=== PATIENT | male | born 1980 | race Caucasian/White ===

== ENCOUNTER 2020-05-04 21:30 | Emergency (ER) | payer BC, OTHER ==
--- NOTE | 2020-05-04 21:46 | EDM.PDOC ---
ED HPI GENERAL MEDICAL PROBLEM - General Chief Complaint: General Stated Complaint: intermittent chest pain Time Seen by Provider: 05/04/20 21:44 Source of Information: Reports: Patient History Limitations: Reports: No Limitations - History of Present Illness INITIAL COMMENTS - FREE TEXT/NARRATIVE: Arnoldo Osuna, 39-year-old male, presents to the emergency department with int ermittent chest discomfort over the past 24+ hours. States this is vague in nature denying any shortness of breath, pain generalized anteriorly with some back pain which is known to be chronic. States he has had generalized body aches at times denying any fever or chills. Has had occasional headache but it is noted he is hypertensive on initial vitals being obtained. History of anxiety plays a part into this along with his elevated blood pressure which is not typical for him. Noted recent change in medications and compliant with current prescription.Was prescribed Fluoxetine, to which he states known allergy to. Has not taken Buspar as Fluoxetine was taken once prescribed yesterday evening. Onset: Gradual Duration: Day(s): Location: Reports: Chest Quality: Reports: Pressure Severity: Moderate Improves with: Reports: None Worsens with: Reports: Movement Left Middle Chest Pain Score (Numeric/FACES): 6 - Related Data Allergies Allergy/AdvReac Type Severity Reaction Status Date / Time acetaminophen [From Tylenol] Allergy Nausea and Verified 05/04/20 22:05 Vomiting ciprofloxacin Allergy Edema Verified 05/04/20 22:05 fluoxetine [From Prozac] AdvReac Other Verified 05/04/20 22:05 Past Medical History HEENT History: Reports: Impaired Vision Other HEENT History: wears glasses. 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 Neurological History: Reports: None Psychiatric History: Reports: ADD, ADHD, Addiction, Anxiety, Bipolar, Depression Endocrine/Metabolic History: Reports: Obesity/BMI 30+ Hematologic History: Reports: None Immunologic History: Reports: None Oncologic (Cancer) History: Reports: None Dermatologic History: Reports: None - Infectious Disease History Infectious Disease History: Reports: Chicken Pox - Past Surgical History Head Surgeries/Procedures: Reports: None HEENT Surgical History: Reports: Adenoidectomy, Oral Surgery, Tonsillectomy Cardiovascular Surgical History: Reports: None GI Surgical History: Reports: Colonoscopy Endocrine Surgical History: Reports: None Neurological Surgical History: Reports: None Musculoskeletal Surgical History: Reports: Other (See Below) (Left ankle surgery for talar repair) Oncologic Surgical History: Reports: None Dermatological Surgical History: Reports: None - Past Imaging History Past Imaging History: Reports: CAT Scan, MRI, Xray Social & Family History - Family History HEENT: Reports: None Cardiac: Reports: Bypass, CAD Respiratory: Reports: Sleep Apnea GI: Reports: None OBGYN: Reports: None Musculoskeletal: Reports: None Neurological: Reports: None Psychiatric: Reports: None Endocrine/Metabolic: Reports: None Hematologic: Reports: None Immunologic: Reports: None Dermatologic: Reports: None Oncologic: Reports: Pancreatic - Tobacco Use Tobacco Use Status *Q: Current Every Day Tobacco User Tobacco Use Within Last Twelve Months: Cigarettes Used Tobacco, but Quit: No Smoking Cessation Information Provided To Patient: Patient Refused - Caffeine Use Caffeine Use: Reports: Coffee, Soda - Living Situation & Occupation Living situation: Reports: , with Family Occupation: Disabled ED ROS GENERAL - Review of Systems Review Of Systems: See Below Constitutional: Reports: No Symptoms. Denies: Fever, Chills HEENT: Reports: No Symptoms Respiratory: Reports: No Symptoms Cardiovascular: Reports: Chest Pain, Blood Pressure Problem Endocrine: Reports: No Symptoms GI/Abdominal: Reports: No Symptoms : Reports: No Symptoms Musculoskeletal: Reports: Neck Pain, Back Pain, Leg Pain Skin: Reports: No Symptoms Neurological: Reports: No Symptoms Psychiatric: Reports: Anxiety Hematologic/Lymphatic: Reports: No Symptoms Immunologic: Reports: No Symptoms ED EXAM, GENERAL - Physical Exam Exam: See Below General Appearance: Alert, WD/WN, No Apparent Distress Ears: Normal External Exam, Normal Canal, Hearing Grossly Normal Nose: Normal Inspection, Normal Mucosa, No Blood Throat/Mouth: Normal Inspection, Normal Lips, Normal Teeth, Normal Gums, Normal Oropharynx, Normal Voice, No Airway Compromise, Other (odor of smoking product) Head: Atraumatic, Normocephalic Neck: Normal Inspection, Supple, Non-Tender, Full Range of Motion Respiratory/Chest: No Respiratory Distress, Lungs Clear, Normal Breath Sounds, No Accessory Muscle Use, Chest Non-Tender Cardiovascular: Normal Peripheral Pulses, Regular Rate, Rhythm, No Edema, No Gallop, No JVD, No Murmur, No Rub GI/Abdominal: Normal Bowel Sounds, Soft, Non-Tender, No Organomegaly, No Distention, No Abnormal Bruit, No Mass (Male) Exam: Deferred Rectal (Males) Exam: Deferred Back Exam: Normal Inspection, Full Range of Motion, Paraspinal Tenderness, Vertebral Tenderness Extremities: Normal Inspection, Normal Capillary Refill, Other (scar to left ankle with limited ROM) Neurological: Alert, Oriented, CN II-XII Intact, Normal Cognition, Normal Gait, Normal Reflexes, No Motor/Sensory Deficits Psychiatric: Anxious Skin Exam: Warm, Dry, Intact, Normal Color, No Rash Lymphatic: No Adenopathy #1 Interpretation EKG Date: 05/04/20 Time: 21:49 Rhythm: NSR [place]: Normal P-Wave: Present QRS: Normal ST-T: Normal QT: Normal Comparison: Change From Previous EKG (NO PVC on current EKG, prior 27 Feb 2017) Course - Vital Signs Last Recorded V/S: Last Vital Signs Temp 98.6 F 05/04/20 21:42 Pulse 72 05/04/20 23:15 Resp 21 H 05/04/20 23:15 BP 140/98 H 05/04/20 23:15 Pulse Ox 93 L 05/04/20 23:00 - Orders/Labs/Meds Orders: Active Orders 24 hr Category Date Time Status EKG Documentation Completion [RC] ASDIRECTED Care 05/04/20 21:45 Active Peripheral IV Care [RC] . DIRECTED Care 05/04/20 21:54 Active Chest 2V [CR] Stat Exams 05/04/20 22:26 Ordered Sodium Chloride 0.9% [Saline Flush] Med 05/04/20 21:54 Active 10 ml FLUSH Q8HR PRN Peripheral IV Insertion Adult [OM.PC] Routine Oth 05/04/20 21:54 Ordered EKG 12 Lead [EK] Urgent Ther 05/04/20 21:45 Ordered Medication Orders Sodium Chloride (Saline Flush) 10 ml FLUSH Q8HR PRN PRN Reason: keep vein open Last Admin: 05/04/20 23:08 Dose: 10 ml Documented by: FLORIAN Labs: Laboratory Tests 05/04/20 05/04/20 05/04/20 Range/Units 22:03 22:03 22:03 WBC 10.30 H (5.00-10.00) 10^3/uL RBC 5.30 (4.50-6.00) 10^6/uL Hgb 16.8 (13.0-17.0) g/dL Hct 48.7 (40.0-52.0) % MCV 91.9 (82.0-92.0) fL MCH 31.7 H (27.0-31.0) pg MCHC 34.5 (32.0-36.0) g/dL RDW 12.8 (11.5-14.5) % Plt Count 158 (150-400) 10^3/uL MPV 11.6 H (7.4-10.4) fL Immature Gran % (Auto) 0.2 (0.0-5.0) % Neut % (Auto) 59.4 (50.0-70.0) % Lymph % (Auto) 34.2 (20.0-40.0) % [place] % (Auto) 5.1 (2.0-8.0) % Eos % (Auto) 0.8 L (1.0-3.0) % Baso % (Auto) 0.3 (0.0-1.0) % Neut # (Auto) 6.12 (2.50-7.00) 10^3/uL Lymph # (Auto) 3.52 (1.00-4.00) 10^3/uL [place] # (Auto) 0.53 (0.10-0.80) 10^3/uL Eos # (Auto) 0.08 L (0.10-0.30) 10^3/uL Baso # (Auto) 0.03 (0.00-0.10) 10^3/uL Immature Gran # (Auto) 0.02 (0.00-0.50) 10^3/uL D-Dimer, Quantitative < 100 (<400) ng/mL Sodium 141 (136-145) mmol/L Potassium 3.3 L (3.5-5.1) mmol/L Chloride 103 (98-107) mmol/L Carbon Dioxide 25.8 (21.0-32.0) mmol/L Anion Gap 15.5 H (5-15) mmol/L BUN 10 (7-18) mg/dL Creatinine 0.86 (0.51-1.17) mg/dL Est Cr Clr Drug Dosing 120.39 mL/min Estimated GFR (MDRD) > 60 mL/min Glucose 98 (70-140) mg/dL Calcium 8.9 (8.7-10.3) mg/dL Total Bilirubin 0.8 (0.2-1.0) mg/dL AST 17 (15-37) U/L ALT 30 (14-63) U/L Alkaline Phosphatase 79 (46-116) U/L Creatine Kinase 131 (26-276) U/L CK-MB (CK-2) < 0.50 (0.00-3.60) ng/mL Troponin I < 0.017 (0.000-0.056) ng/mL Total Protein 7.3 (6.4-8.2) g/dL Albumin 4.18 (3.40-5.00) g/dL Meds: Medications Generic Name Dose Route Start Last Admin Trade Name Frewill PRN Reason Stop Dose Admin Sodium Chloride 10 ml 05/04/20 21:54 05/04/20 23:08 Saline Flush FLUSH 10 ml Q8HR PRN Administration keep vein open Discontinued Medications Generic Name Dose Route Start Last Admin Trade Name Freq PRN Reason Stop Dose Admin Ketorolac Tromethamine 30 mg 05/04/20 23:04 05/04/20 23:08 Toradol IVPUSH 05/04/20 23:05 30 mg ONETIME ONE Administration Lorazepam 0.5 mg 05/04/20 22:51 05/04/20 22:55 Ativan PO 05/04/20 22:52 0.5 mg ONETIME ONE Administration - Re-Assessments/Exams Free Text/Narrative Re-Assessment/Exam: 05/04/20 23:44 Significant improvement of blood pressure as well as his back pain headache. Noted improvement of blood pressure as well. We did discuss in detail the combination of medications that the phentermine may not be fully beneficial as sometimes he had been on it for minimal weight loss being noted. Phentermine may be contributing to his fluctuating blood pressure readings. Free Text/Narrative Re-Assessment/Exam: 05/04/20 23:52 Discussed with team adding potassium containing foods banana and such into his diet daily as his potassium on the low side of normal. He agrees and will follow up with his clinic in the next week. Departure - Departure Time of Disposition: 23:12 Disposition: Home, Self-Care 01 Condition: Good Clinical Impression: Anxiety Headache Qualifiers: Headache chronicity pattern: acute headache Intractability: not intractable Back pain Qualifiers: Back pain location: thoracic back pain Chronicity: chronic Back pain laterality: left Qualified Code(s): M54.6 - Pain in thoracic spine - Discharge Information *PRESCRIPTION DRUG MONITORING PROGRAM REVIEWED*: Not Applicable *COPY OF PRESCRIPTION DRUG MONITORING REPORT IN PATIENT JUNAID: Not Applicable Instructions: Pain Without a Known Cause, Chronic Back Pain Referrals: Maggie Hester PA-C [Primary Care Provider] - Forms: ED Department Discharge Additional Instructions: You need to go home and rest. Your EKG, chest x-ray, and lab tests are all negative for any factors in conjunction with your heart. This intermittent discomfort you are having may be related to your chronic back pain. You may take ibuprofen or your prescribed anti-inflammatory diclofenac that you have been given in the past for associated aches and pains. Take your prescription medicines as directed, but do not take the fluoxetine/Prozac. You need to contact the clinic on Thursday to discuss options for your anxiety treatment as you are allergic to the duloxetine and fluoxetine in review of records. Limit your caffeine intake and other stimulant that may be exacerbating your blood pressure readings. Contact the clinic in regards to your blood pressure as well as it is trended in your past visits on the high normal side. We saw significant improvement here after we gave you the ketorolac for your headache and back pain as well as the dose of Ativan for anxiety and blood pressure related to your pain. Sepsis Event Note (ED) - Focused Exam Vital Signs: Vital Signs Temp Pulse Resp BP Pulse Ox 05/04/20 23:15 72 21 H 140/98 H 05/04/20 23:00 77 25 H 129/92 H 93 L 05/04/20 22:45 81 22 H 133/92 H 94 L 05/04/20 22:30 80 22 H 130/88 92 L 05/04/20 22:15 80 26 H 137/90 94 L 05/04/20 22:00 84 19 139/94 H 95 05/04/20 21:45 86 26 H 143/102 H 97 05/04/20 21:42 98.6 F 84 25 H 137/97 H 96 - Problem List & Annotations (1) Chest pain SNOMED Code(s): 00243799 Code(s): R07.9 - CHEST PAIN, UNSPECIFIED Status: Acute Priority: High Qualifiers: Chest pain type: other chest pain Qualified Code(s): R07.89 - Other chest pain; R07.8 - Other chest pain (2) Headache SNOMED Code(s): 12733702 Code(s): R51.9 - HEADACHE, UNSPECIFIED Status: Acute Priority: Medium Qualifiers: Headache chronicity pattern: acute headache Intractability: not intractable (3) Tobacco abuse SNOMED Code(s): 528047999 Code(s): Z72.0 - TOBACCO USE Status: Chronic Priority: Medium Annotation/Comment:: denies desire to quit (4) Anxiety SNOMED Code(s): 70284914 Code(s): F41.9 - ANXIETY DISORDER, UNSPECIFIED Status: Acute (5) Elevated blood pressure Code(s): I10 - ESSENTIAL (PRIMARY) HYPERTENSION Status: Chronic Priority: Medium Onset Date: 10/11/15 (6) Back pain SNOMED Code(s): 209262280 Code(s): M54.9 - DORSALGIA, UNSPECIFIED Status: Chronic Priority: Medium Qualifiers: Back pain location: thoracic back pain Chronicity: chronic Back pain laterality: left Qualified Code(s): M54.6 - Pain in thoracic spine; G89.29 - Other chronic pain (7) Hypokalemia SNOMED Code(s): 40781887 Code(s): E87.6 - HYPOKALEMIA Status: Acute Annotation/Comment:: will add bananna and high potassium food to diet and recheck with clinic - Problem List Review Problem List Initiated/Reviewed/Updated: Yes - My Orders Last 24 Hours: My Active Orders 05/04/20 21:45 EKG Documentation Completion [RC] ASDIRECTED EKG 12 Lead [EK] Urgent 05/04/20 21:54 Peripheral IV Care [RC] . DIRECTED Sodium Chloride 0.9% [Saline Flush] 10 ml FLUSH Q8HR PRN Peripheral IV Insertion Adult [OM.PC] Routine 05/04/20 22:26 Chest 2V [CR] Stat - Assessment/Plan Last 24 Hours: My Active Orders 05/04/20 21:45 EKG Documentation Completion [RC] ASDIRECTED EKG 12 Lead [EK] Urgent 05/04/20 21:54 Peripheral IV Care [RC] . DIRECTED Sodium Chloride 0.9% [Saline Flush] 10 ml FLUSH Q8HR PRN Peripheral IV Insertion Adult [OM.PC] Routine 05/04/20 22:26 Chest 2V [CR] Stat Plan: You need to go home and rest. Your EKG, chest x-ray, and lab tests are all negative for any factors in conjunction with your heart. This intermittent discomfort you are having may be related to your chronic back pain. You may take ibuprofen or your prescribed anti-inflammatory diclofenac that you have been given in the past for associated aches and pains. Take your prescription medicines as directed, but do not take the fluoxetine/Prozac. You need to contact the clinic on Thursday to discuss options for your anxiety treatment as you are allergic to the duloxetine and fluoxetine in review of records. Limit your caffeine intake and other stimulant that may be exacerbating your blood pressure readings. Contact the clinic in regards to your blood pressure as well as it is trended in your past visits on the high normal side. We saw significant improvement here after we gave you the ketorolac for your headache and back pain as well as the dose of Ativan for anxiety and blood pressure related to your pain.
[2020-05-04] MEDS ORDERED: Sodium Chloride 0.9% 10 ML Syringe FLUSH PRN (21:54)
[2020-05-04] MEDS ORDERED: LORazepam 0.5 MG Tab PO ONE (22:51)
[2020-05-04 23:02] LABS: ANION GAP 15.5 mmol/L (5-15); CHLORIDE,CL 103 mmol/L (98-107); SODIUM,NA 141 mmol/L (136-145)
[2020-05-04] MEDS ORDERED: Ketorolac 30 MG/ML SDV IVPUSH ONE (23:04)
[2020-05-04 23:17] VITALS: BP 140/98; PULSE 72
--- NOTE | 2020-05-05 10:20 | CR ---
[id number] RAD/RAD Chest PA And Lateral EXAM: RAD Chest PA And Lateral INDICATION: CHEST PAIN, HX COPD COMPARISON: None. DISCUSSION: Cardiomediastinal silhouette is normal in size and contour. No infiltrate, effusion, pneumothorax, or edema. IMPRESSION: No acute cardiopulmonary abnormality. Jimi Troy DO 05/05/20 1019 Thank you for allowing us to participate in the care of your patient.
== END 2020-05-04 23:29 | disposition home or self-care (01) ==
LOC: KA.ED 21:30
DX: F41.9 Anxiety disorder, unspecified (principal); M54.6 Pain in thoracic spine; R51.9 Headache, unspecified; J44.9 Chronic obstructive pulmonary disease, unspecified; I25.2 Old myocardial infarction; F17.210 Nicotine dependence, cigarettes, uncomplicated; E66.9 Obesity, unspecified; Z68.38 Body mass index [BMI] 38.0-38.9, adult; Z88.6 Allergy status to analgesic agent; Z88.1 Allergy status to other antibiotic agents; Z88.8 Allergy status to other drugs, medicaments and biological substances
CPT/HCPCS: 36415; 71046; 80053; 82550; 82553; 84484; 85025; 85379; 93005; 96374; 99284; 99285-25; A9270-GY; J1885

== ENCOUNTER 2021-12-04 21:24 | Emergency (ER) | payer BC, MEDICARE, OTHER ==
[2021-12-04] MEDS: Ketorolac 60 MG/2 ML SDV IM ONE (21:38)
[2021-12-04] MEDS: Ketorolac 60 MG/2 ML SDV ONE (21:40)
[2021-12-04 21:46] VITALS: BP 147/94; PULSE 86
[2021-12-04] MEDS: Methocarbamol 500 MG Tab PO ONE (22:13)
== END 2021-12-04 22:25 | disposition home or self-care (01) ==
LOC: KA.ED 21:24
DX: R07.81 Pleurodynia (principal); I25.2 Old myocardial infarction; J44.9 Chronic obstructive pulmonary disease, unspecified; Z88.1 Allergy status to other antibiotic agents; Z88.8 Allergy status to other drugs, medicaments and biological substances
CPT/HCPCS: 71111-RT; 96372; 99283; 99284; A9270-GY; J1885